=== PATIENT | female | born 1985 | race Caucasian/White ===

== ENCOUNTER 2020-05-03 20:05 | Emergency (ER) | payer MEDICAID ==
[~2020-05-03] VITALS: Ht 180.3 cm; Wt 97.7 kg
[~2020-05-03 20:05] MED LIST: LIDOcaine 1% W/epiNEPHrine 1:200,000 10ml vial ONE
--- NOTE | 2020-05-03 20:26 | NUR ---
saravanan [phone]
--- NOTE | 2020-05-03 21:19 | NUR ---
dacia is going to take patient home he can be reached at [phone]
[2020-05-03] MEDS ORDERED: TETanus/Pertussis (Acell)/Diphther VAC/PF (Tdap-Adult) 0.5ml syringe IMVAC ONE (21:50)
[2020-05-03] MEDS ORDERED: LIDOcaine 1% W/epiNEPHrine 1:200,000 10ml vial IJ ONE (22:15)
[2020-05-03] MEDS ORDERED: LIDOcaine 1% w/epiNEPHrine 1:200,000 30ml vial IJ ONE (22:20)
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
[2020-05-03 22:43] VITALS: BP 168/72
== END 2020-05-03 23:30 | disposition home or self-care (01) ==
LOC: ER 20:06
DX: S61.411A Laceration without foreign body of right hand, initial encounter (principal); W45.8XXA Other foreign body or object entering through skin, initial encounter; Y93.89 Activity, other specified; Y92.89 Other specified places as the place of occurrence of the external cause; Y99.8 Other external cause status
CPT/HCPCS: 12002; 90471; 90715; 99283

== ENCOUNTER 2020-05-11 16:27 | Emergency (ER) | payer MEDICAID ==
[~2020-05-11] VITALS: Ht 175.3 cm; Wt 70.0 kg
[2020-05-11 18:16] VITALS: BP 127/89
[2020-05-11 18:27] LABS: BASOPHILS # (AUTO) 0.1 X10'3 (0-0.2); EOSINOPHILS # (AUTO) 0.2 X10'3 (0-0.9); EOSINOPHILS % (AUTO) 3.4 % (0-6); HEMATOCRIT 40.4 % (35.0-45.0); HEMOGLOBIN 13.8 g/dl (12.0-16.0); LYMPHOCYTES # (AUTO) 2.4 X10'3 (1.1-4.8); LYMPHOCYTES % (AUTO) 33.1 % (21-51); MEAN CORPUSCULAR HGB CONC 34.1 g/dL (33.0-36.5); MEAN CORPUSCULAR VOLUME 96.7 FL (78-98); MEAN PLATELET VOLUME 8.6 FL (7.4-10.4); MONOCYTES # (AUTO) 0.8 X10'3 (0-0.9); MONOCYTES % (AUTO) 10.4 % (2-12); NEUTROPHILS # (AUTO) 3.8 X10'3 (1.8-7.7); NEUTROPHILS % (AUTO) 52.1 % (42-75); PLATELET COUNT 343 X10'3 (140-440); RED BLOOD COUNT 4.17 X10'6 (4.20-5.60); RED CELL DISTRIBUTION WIDTH 13.5 % (11.5-14.5); WHITE BLOOD COUNT 7.3 X10'3 (4.5-11.0)
[2020-05-11 18:34] LABS: URINE HCG NEGATIVE (NEG)
[2020-05-11 18:42] LABS: ALANINE AMINOTRANSFERASE 52 U/L (12-78); ALBUMIN 3.8 G/DL (3.4-5.0); ALBUMIN/GLOBULIN RATIO 1.1 (1.1-1.5); ALKALINE PHOSPHATASE 106 IU/L (46-116); ANION GAP 8 (8-16); ASPARTATE AMINO TRANSFERASE 31 U/L (10-37); BILIRUBIN,TOTAL 0.2 MG/DL (0.1-1.0); BLOOD UREA NITROGEN 9 MG/DL (7-18); BUN/CREATININE RATIO 13.2 (6.6-38.0); CALCIUM 8.5 MG/DL (8.5-10.1); CHLORIDE 106 MMOL/L (99-107); CREATININE 0.68 MG/DL (0.40-0.90); GLUCOSE 92 MG/DL (70-104); LIPASE 94 U/L (73-393); POTASSIUM 4.2 MMOL/L (3.5-5.1); SODIUM 140 MMOL/L (135-145); TOTAL CARBON DIOXIDE 25.8 MMOL/L (24-32); TOTAL PROTEIN 7.2 G/DL (6.4-8.2); eGFR > 90 ML/MIN
--- NOTE | 2020-05-11 18:49 | NUR ---
PATIENT IN BED EYES CLOSED RR EVEN UN LABORED NO OBSERVABLE S/S OF ACUTE STRESS/PAIN AT THIS TIME WILL CONTINUE TO MONITOR
[2020-05-11 18:50] LABS: CLARITY,URINE CLEAR (Clear); COLOR,URINE STRAW (Yellow); GLUCOSE, URINE NEGATIVE (Neg); KETONES,URINE NEGATIVE (Neg); LEUKOCYTE ESTERASE ,URINE NEGATIVE (Neg); NITRITES, URINE NEGATIVE (Neg); OCCULT BLOOD,URINE NEGATIVE (Neg); PH,URINE 6.5 (4.8-8.0); PROTEIN,URINE NEGATIVE (Neg); UROBILINOGEN,URINE 0.2 E.U/dL (0.2-1.0)
[2020-05-11 18:52] LABS: UA COLLECTION TYPE CLN CATCH MIDSTREAM
[2020-05-11] MEDS ORDERED: ondansetron 4mg rapidly disintigrating tab PO ONE (19:00)
[2020-05-11] MEDS ORDERED: HYDROcodone/acetaminophen 5mg/325mg tablet PO ONE (19:00)
== END 2020-05-11 20:21 | disposition home or self-care (01) ==
LOC: ER 16:28
DX: R10.9 Unspecified abdominal pain (principal); R11.2 Nausea with vomiting, unspecified; R31.9 Hematuria, unspecified; Z88.6 Allergy status to analgesic agent; Z90.49 Acquired absence of other specified parts of digestive tract
CPT/HCPCS: 36415; 74176; 80053; 81003; 81025; 83690; 85025; 99284

== ENCOUNTER 2020-07-31 20:09 | Emergency (ER) | payer MEDICAID ==
[~2020-07-31] VITALS: Ht 175.3 cm; Wt 75.0 kg
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
[2020-07-31 21:02] VITALS: BP 134/72
== END 2020-07-31 21:04 | disposition home or self-care (01) ==
LOC: ER 20:10
DX: M25.531 Pain in right wrist (principal); Z90.89 Acquired absence of other organs; Z88.6 Allergy status to analgesic agent
CPT/HCPCS: 73110; 99283

== ENCOUNTER 2021-06-14 11:44 | Emergency (ER) | payer MEDICAID ==
[2021-06-14 12:03] VITALS: BP 133/81
== END 2021-06-14 12:20 | disposition left against medical advice (07) ==
LOC: ER 11:45
DX: M79.641 Pain in right hand (principal); M79.672 Pain in left foot; Z79.899 Other long term (current) drug therapy; Z88.8 Allergy status to other drugs, medicaments and biological substances; Z90.49 Acquired absence of other specified parts of digestive tract
CPT/HCPCS: 99281

== ENCOUNTER 2021-11-24 16:28 | Emergency (ER) | payer MEDICAID ==
--- NOTE | 2021-11-24 19:40 | NUR ---
SECOND CALL, PT NOT IN LOBBY
--- NOTE | 2021-11-24 20:10 | NUR ---
THIRD CALL. PT NOT IN LOBBY
== END 2021-11-24 20:11 | disposition left against medical advice (07) ==
LOC: ER 16:30
DX: R21 Rash and other nonspecific skin eruption (principal); Z53.21 Procedure and treatment not carried out due to patient leaving prior to being seen by health care provider

== ENCOUNTER 2021-11-25 00:26 | Emergency (ER) | payer MEDICAID ==
[~2021-11-25] VITALS: Ht 177.8 cm; Wt 113.6 kg
[2021-11-25 00:45] VITALS: BP 150/105
[2021-11-25] MEDS ORDERED: triamcinolone acetonide 40mg/ml inj IM ONE (03:00)
[2021-11-25] MEDS ORDERED: dexamethasone 4mg/ml inj IM ONE (03:00)
== END 2021-11-25 03:49 | disposition home or self-care (01) ==
LOC: ER 00:26
DX: L23.7 Allergic contact dermatitis due to plants, except food (principal); Z88.6 Allergy status to analgesic agent; Z88.8 Allergy status to other drugs, medicaments and biological substances; Z90.49 Acquired absence of other specified parts of digestive tract
CPT/HCPCS: 96372; 99284; J1100; J3301

== ENCOUNTER 2022-03-07 01:55 | Emergency (ER) | payer MEDICAID ==
[~2022-03-07] VITALS: Ht 175.3 cm; Wt 81.8 kg
[2022-03-07 02:27] VITALS: BP 130/99
--- NOTE | 2022-03-07 03:38 | NUR ---
nasrin from one safe place at bedside.
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
[2022-03-07 07:03] LABS: BASOPHILS % (AUTO) 0.8 % (0-1); EOSINOPHILS # (AUTO) 0.2 X10'3 (0-0.9); EOSINOPHILS % (AUTO) 2.9 % (0-6); HEMATOCRIT 39.7 % (35.0-45.0); HEMOGLOBIN 13.4 g/dl (12.0-16.0); LYMPHOCYTES # (AUTO) 2.4 X10'3 (1.1-4.8); LYMPHOCYTES % (AUTO) 37.3 % (21-51); MEAN CORPUSCULAR HGB CONC 33.9 g/dL (33.0-36.5); MEAN CORPUSCULAR VOLUME 94.5 FL (78-98); MEAN PLATELET VOLUME 8.6 FL (7.4-10.4); MONOCYTES # (AUTO) 0.6 X10'3 (0-0.9); MONOCYTES % (AUTO) 10.1 % (2-12); NEUTROPHILS # (AUTO) 3.2 X10'3 (1.8-7.7); NEUTROPHILS % (AUTO) 48.9 % (42-75); PLATELET COUNT 305 X10'3 (140-440); RED CELL DISTRIBUTION WIDTH 13.7 % (11.5-14.5); WHITE BLOOD COUNT 6.4 X10'3 (4.5-11.0)
[2022-03-07 07:18] LABS: ALANINE AMINOTRANSFERASE 27 U/L (12-78); ALBUMIN 3.8 G/DL (3.4-5.0); ALBUMIN/GLOBULIN RATIO 1.1 (1.1-1.5); ALKALINE PHOSPHATASE 131 IU/L (46-116); ANION GAP 8 (8-16); ASPARTATE AMINO TRANSFERASE 33 U/L (10-37); BILIRUBIN,TOTAL 0.2 MG/DL (0.1-1.0); BLOOD UREA NITROGEN 6 MG/DL (7-18); BUN/CREATININE RATIO 9.1 (6.6-38.0); CALCIUM 8.3 MG/DL (8.5-10.1); CHLORIDE 99 MMOL/L (99-107); CREATININE 0.66 MG/DL (0.40-0.90); GLUCOSE 98 MG/DL (70-104); POTASSIUM 3.5 MMOL/L (3.5-5.1); SODIUM 135 MMOL/L (135-145); TOTAL PROTEIN 7.3 G/DL (6.4-8.2); eGFR > 90 ML/MIN
[2022-03-07 07:19] LABS: HCG SERUM QL NEGATIVE
[2022-03-07 09:22] LABS: HIV ANTIBODY 1&2 RAPID NON-REACTIVE (Neg)
== END 2022-03-07 08:21 | disposition home or self-care (01) ==
LOC: ER 01:56
DX: T74.21XA Adult sexual abuse, confirmed, initial encounter (principal); M54.2 Cervicalgia; R53.1 Weakness; R42 Dizziness and giddiness; R51.9 Headache, unspecified; Z88.6 Allergy status to analgesic agent; Z88.8 Allergy status to other drugs, medicaments and biological substances; Z79.899 Other long term (current) drug therapy
CPT/HCPCS: 36415; 70450; 72125; 80053; 83880; 84484; 84703; 85025; 86703; 93005; 99285

== ENCOUNTER 2022-03-29 23:07 | Emergency (ER) | payer MEDICAID ==
[~2022-03-29] VITALS: Ht 175.3 cm; Wt 90.9 kg
[2022-03-29 23:14] VITALS: BP 119/91
== END 2022-03-30 01:18 | disposition home or self-care (01) ==
LOC: ER 23:08
DX: S09.90XA Unspecified injury of head, initial encounter (principal); F07.81 Postconcussional syndrome; R51.9 Headache, unspecified; R11.0 Nausea; Z86.73 Personal history of transient ischemic attack (TIA), and cerebral infarction without residual deficits; Z90.89 Acquired absence of other organs; Z88.6 Allergy status to analgesic agent; Z88.8 Allergy status to other drugs, medicaments and biological substances; Y08.89XA Assault by other specified means, initial encounter; Y93.89 Activity, other specified; Y92.89 Other specified places as the place of occurrence of the external cause; Y99.8 Other external cause status
CPT/HCPCS: 99282

== ENCOUNTER 2022-05-02 14:00 | Emergency (ER) | payer MEDICAID ==
--- NOTE | 2022-05-02 14:58 | NUR ---
have called pt 3 times, attempted to call her again, now she is in restroom
== END 2022-05-02 17:00 | disposition left against medical advice (07) ==
LOC: ER 14:01
DX: Z00.00 Encounter for general adult medical examination without abnormal findings (principal); Z53.21 Procedure and treatment not carried out due to patient leaving prior to being seen by health care provider
CPT/HCPCS: 99283

== ENCOUNTER 2022-05-20 21:39 | Emergency (ER) | payer MEDICAID ==
[~2022-05-20] VITALS: Ht 177.8 cm; Wt 97.7 kg
[2022-05-21 04:50] LABS: CLARITY,URINE CLEAR (Clear); COLOR,URINE STRAW (Yellow); GLUCOSE, URINE NEGATIVE (Neg); KETONES,URINE NEGATIVE (Neg); LEUKOCYTE ESTERASE ,URINE NEGATIVE (Neg); NITRITES, URINE NEGATIVE (Neg); OCCULT BLOOD,URINE NEGATIVE (Neg); PROTEIN,URINE NEGATIVE (Neg); URINE HCG NEGATIVE (NEG); UROBILINOGEN,URINE 0.2 E.U/dL (0.2-1.0)
[2022-05-21 04:52] LABS: UA COLLECTION TYPE VOIDED
[2022-05-21] MEDS ORDERED: morphine 4 MG/ML inj SYRINge IM ONE (06:40)
[2022-05-21 06:55] VITALS: BP 115/54
[2022-05-21] MEDS ORDERED: fluconazole 100mg tablet PO ONE (07:05)
== END 2022-05-21 06:57 | disposition home or self-care (01) ==
LOC: ER 21:39
DX: M54.59 Other low back pain (principal); M54.2 Cervicalgia; M79.602 Pain in left arm; W19.XXXA Unspecified fall, initial encounter; Y93.89 Activity, other specified; Y92.89 Other specified places as the place of occurrence of the external cause; Y99.8 Other external cause status
CPT/HCPCS: 70450; 71045; 72125; 72128; 72131; 72170; 73130; 81003; 81025; 96372; 99285; J2270

== ENCOUNTER 2022-06-21 15:07 | Emergency (ER) | payer MEDICARE, MEDICAID ==
[~2022-06-21] VITALS: Ht 177.8 cm; Wt 91.4 kg
[2022-06-21 15:21] LABS: BASOPHILS # (AUTO) 0.1 X10'3 (0-0.2); BASOPHILS % (AUTO) 1.1 % (0-1); EOSINOPHILS # (AUTO) 0.2 X10'3 (0-0.9); EOSINOPHILS % (AUTO) 2.9 % (0-6); HEMATOCRIT 40.1 % (35.0-45.0); HEMOGLOBIN 13.7 g/dl (12.0-16.0); LYMPHOCYTES # (AUTO) 2.5 X10'3 (1.1-4.8); LYMPHOCYTES % (AUTO) 29.8 % (21-51); MEAN CORPUSCULAR HEMOGLOBIN 32.8 PG (27.0-31.0); MEAN CORPUSCULAR HGB CONC 34.2 g/dL (33.0-36.5); MEAN CORPUSCULAR VOLUME 95.9 FL (78-98); MEAN PLATELET VOLUME 8.6 FL (7.4-10.4); MONOCYTES # (AUTO) 0.7 X10'3 (0-0.9); MONOCYTES % (AUTO) 7.7 % (2-12); NEUTROPHILS # (AUTO) 4.9 X10'3 (1.8-7.7); NEUTROPHILS % (AUTO) 58.5 % (42-75); PLATELET COUNT 339 X10'3 (140-440); RED BLOOD COUNT 4.18 X10'6 (4.20-5.60); RED CELL DISTRIBUTION WIDTH 13.6 % (11.5-14.5); WHITE BLOOD COUNT 8.4 X10'3 (4.5-11.0)
[2022-06-21 15:43] LABS: ALANINE AMINOTRANSFERASE 126 U/L (12-78); ALBUMIN/GLOBULIN RATIO 1.2 (1.1-1.5); ALKALINE PHOSPHATASE 130 IU/L (46-116); ANION GAP 8 (8-16); ASPARTATE AMINO TRANSFERASE 110 U/L (10-37); BILIRUBIN,TOTAL 0.3 MG/DL (0.1-1.0); BLOOD UREA NITROGEN 5 MG/DL (7-18); BUN/CREATININE RATIO 6.3 (6.6-38.0); CALCIUM 8.6 MG/DL (8.5-10.1); CHLORIDE 103 MMOL/L (99-107); CREATININE 0.79 MG/DL (0.40-0.90); GLUCOSE 114 MG/DL (70-104); POTASSIUM 3.8 MMOL/L (3.5-5.1); SODIUM 140 MMOL/L (135-145); TOTAL CARBON DIOXIDE 29.1 MMOL/L (24-32); TOTAL PROTEIN 7.3 G/DL (6.4-8.2); eGFR 82 ML/MIN
[2022-06-21 16:45] VITALS: BP 146/90
== END 2022-06-21 20:04 | disposition left against medical advice (07) ==
LOC: ER 15:07
DX: R07.9 Chest pain, unspecified (principal); Z53.21 Procedure and treatment not carried out due to patient leaving prior to being seen by health care provider
CPT/HCPCS: 36415; 71045; 80053; 83735; 83880; 84484; 85025; 93005

== ENCOUNTER 2022-07-14 18:32 | Emergency (ER) | payer MEDICARE, MEDICAID ==
[~2022-07-14] VITALS: Ht 180.3 cm; Wt 90.2 kg
[2022-07-14 18:51] VITALS: BP 134/88
[2022-07-14 21:22] LABS: CLARITY,URINE CLEAR (Clear); COLOR,URINE STRAW (Yellow); GLUCOSE, URINE NEGATIVE (Neg); KETONES,URINE NEGATIVE (Neg); LEUKOCYTE ESTERASE ,URINE NEGATIVE (Neg); NITRITES, URINE NEGATIVE (Neg); OCCULT BLOOD,URINE SMALL (Neg); PROTEIN,URINE NEGATIVE (Neg); URINE HCG NEGATIVE (NEG); UROBILINOGEN,URINE 0.2 E.U/dL (0.2-1.0)
[2022-07-14 21:30] LABS: UA COLLECTION TYPE CLN CATCH MIDSTREAM
[2022-07-14 21:32] LABS: BASOPHILS # (AUTO) 0.1 X10'3 (0-0.2); BASOPHILS % (AUTO) 0.6 % (0-1); EOSINOPHILS # (AUTO) 0.1 X10'3 (0-0.9); EOSINOPHILS % (AUTO) 1.2 % (0-6); HEMATOCRIT 42.9 % (35.0-45.0); HEMOGLOBIN 14.4 g/dl (12.0-16.0); LYMPHOCYTES # (AUTO) 2.8 X10'3 (1.1-4.8); LYMPHOCYTES % (AUTO) 25.4 % (21-51); MEAN CORPUSCULAR HEMOGLOBIN 32.5 PG (27.0-31.0); MEAN CORPUSCULAR HGB CONC 33.6 g/dL (33.0-36.5); MEAN CORPUSCULAR VOLUME 96.6 FL (78-98); MEAN PLATELET VOLUME 8.8 FL (7.4-10.4); MONOCYTES % (AUTO) 8.9 % (2-12); NEUTROPHILS # (AUTO) 7.1 X10'3 (1.8-7.7); NEUTROPHILS % (AUTO) 63.9 % (42-75); PLATELET COUNT 361 X10'3 (140-440); RED BLOOD COUNT 4.44 X10'6 (4.20-5.60); RED CELL DISTRIBUTION WIDTH 14.1 % (11.5-14.5); WHITE BLOOD COUNT 11.2 X10'3 (4.5-11.0)
[2022-07-14 21:33] LABS: SQUAMOUS EPITHELIAL CELL,UR FEW /LPF (FEW)
[2022-07-14 21:34] LABS: BACTERIA,URINE NONE SEEN /HPF (Neg); RBC,URINE 0-2 /HPF (0-2); WBC,URINE NONE SEEN /HPF (0-4)
[2022-07-14 21:44] LABS: ALANINE AMINOTRANSFERASE 91 U/L (12-78); ALBUMIN 4.4 G/DL (3.4-5.0); ALBUMIN/GLOBULIN RATIO 1.2 (1.1-1.5); ALKALINE PHOSPHATASE 149 IU/L (46-116); ANION GAP 13 (8-16); ASPARTATE AMINO TRANSFERASE 106 U/L (10-37); BILIRUBIN,TOTAL 0.4 MG/DL (0.1-1.0); BLOOD UREA NITROGEN 6 MG/DL (7-18); BUN/CREATININE RATIO 7.5 (6.6-38.0); CALCIUM 9.1 MG/DL (8.5-10.1); CHLORIDE 101 MMOL/L (99-107); GLUCOSE 115 MG/DL (70-104); POTASSIUM 3.1 MMOL/L (3.5-5.1); SODIUM 136 MMOL/L (135-145); TOTAL CARBON DIOXIDE 21.7 MMOL/L (24-32); TOTAL PROTEIN 8.1 G/DL (6.4-8.2); eGFR 81 ML/MIN
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
[2022-07-14] MEDS ORDERED: METR-159 PO (22:11)
[2022-07-14] MEDS ORDERED: DOXY-1 PO (22:11)
[2022-07-14] MEDS ORDERED: DOXYCYCLINE 100MG CAPSULE PO STA (22:12)
[2022-07-14] MEDS ORDERED: metroNIDAZOLE 500mg tablet PO ONE (22:15)
[2022-07-14] MEDS: POTASSIUM BICARB 20meq eff tab 20 MEQ TABLET.EFF PO SCH (22:25)
== END 2022-07-14 22:30 | disposition home or self-care (01) ==
LOC: ER 18:33
DX: N73.9 Female pelvic inflammatory disease, unspecified (principal); E87.6 Hypokalemia; F17.200 Nicotine dependence, unspecified, uncomplicated; Z90.49 Acquired absence of other specified parts of digestive tract; Z88.6 Allergy status to analgesic agent; Z88.5 Allergy status to narcotic agent; Z88.8 Allergy status to other drugs, medicaments and biological substances
CPT/HCPCS: 36415; 80053; 81001; 81025; 85025; 99284

== ENCOUNTER 2022-07-24 15:12 | Emergency (ER) | payer MEDICARE, MEDICAID ==
[~2022-07-24] VITALS: Ht 182.9 cm; Wt 113.6 kg
[~2022-07-24 15:12] MED LIST changes: +DOXY-1 PO; -LIDOcaine 1% W/epiNEPHrine 1:200,000 10ml vial ONE; +METR-159 PO
[2022-07-24 15:15] VITALS: BP 121/88
[2022-07-24 15:54] LABS: BASOPHILS % (AUTO) 0.4 % (0-1); EOSINOPHILS # (AUTO) 0.1 X10'3 (0-0.9); EOSINOPHILS % (AUTO) 1.6 % (0-6); HEMATOCRIT 42.2 % (35.0-45.0); HEMOGLOBIN 14.1 g/dl (12.0-16.0); LYMPHOCYTES # (AUTO) 2.1 X10'3 (1.1-4.8); LYMPHOCYTES % (AUTO) 31.3 % (21-51); MEAN CORPUSCULAR HEMOGLOBIN 32.7 PG (27.0-31.0); MEAN CORPUSCULAR HGB CONC 33.5 g/dL (33.0-36.5); MEAN CORPUSCULAR VOLUME 97.6 FL (78-98); MEAN PLATELET VOLUME 8.5 FL (7.4-10.4); MONOCYTES # (AUTO) 0.8 X10'3 (0-0.9); MONOCYTES % (AUTO) 11.9 % (2-12); NEUTROPHILS # (AUTO) 3.7 X10'3 (1.8-7.7); NEUTROPHILS % (AUTO) 54.8 % (42-75); PLATELET COUNT 269 X10'3 (140-440); RED BLOOD COUNT 4.33 X10'6 (4.20-5.60); WHITE BLOOD COUNT 6.7 X10'3 (4.5-11.0)
[2022-07-24 15:59] LABS: CLARITY,URINE CLEAR (Clear); COLOR,URINE STRAW (Yellow); GLUCOSE, URINE NEGATIVE (Neg); KETONES,URINE NEGATIVE (Neg); LEUKOCYTE ESTERASE ,URINE NEGATIVE (Neg); NITRITES, URINE NEGATIVE (Neg); OCCULT BLOOD,URINE NEGATIVE (Neg); PROTEIN,URINE NEGATIVE (Neg); UROBILINOGEN,URINE 0.2 E.U/dL (0.2-1.0)
[2022-07-24 16:00] LABS: UA COLLECTION TYPE VOIDED
[2022-07-24 16:09] LABS: ALANINE AMINOTRANSFERASE 72 U/L (12-78); ALBUMIN 3.6 G/DL (3.4-5.0); ALBUMIN/GLOBULIN RATIO 1.1 (1.1-1.5); ALKALINE PHOSPHATASE 134 IU/L (46-116); ANION GAP 12 (8-16); ASPARTATE AMINO TRANSFERASE 59 U/L (10-37); BILIRUBIN,TOTAL 0.3 MG/DL (0.1-1.0); BLOOD UREA NITROGEN 8 MG/DL (7-18); BUN/CREATININE RATIO 12.3 (6.6-38.0); CALCIUM 8.5 MG/DL (8.5-10.1); CHLORIDE 102 MMOL/L (99-107); CREATININE 0.65 MG/DL (0.40-0.90); GLUCOSE 101 MG/DL (70-104); POTASSIUM 3.3 MMOL/L (3.5-5.1); SODIUM 139 MMOL/L (135-145); TOTAL CARBON DIOXIDE 25.5 MMOL/L (24-32); TOTAL PROTEIN 6.8 G/DL (6.4-8.2); eGFR > 90 ML/MIN
[2022-07-24 16:13] LABS: URINE AMPHETAMINE SCREEN NEGATIVE (Neg); URINE BARBITUATE SCREEN NEGATIVE (Neg); URINE BENZODIAZEPINES SCREEN POSITIVE (Neg); URINE CANNABINOID SCREEN POSITIVE (Neg); URINE COCAINE SCREEN NEGATIVE (Neg); URINE METHADONE SCREEN NEGATIVE (Neg); URINE OPIATE SCREEN NEGATIVE (Neg); URINE PHENCYCLIDINE SCREEN NEGATIVE (Neg)
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
== END 2022-07-24 17:58 | disposition left against medical advice (07) ==
LOC: ER 15:13
DX: R41.82 Altered mental status, unspecified (principal); Z88.5 Allergy status to narcotic agent; Z88.6 Allergy status to analgesic agent; Z90.49 Acquired absence of other specified parts of digestive tract; Z79.899 Other long term (current) drug therapy
CPT/HCPCS: 36415; 80053; 80305; 81003; 84484; 85025; 93005; 99284

== ENCOUNTER 2022-07-28 17:29 | Emergency (ER) | payer MEDICARE, MEDICAID ==
[~2022-07-28] VITALS: Ht 172.7 cm; Wt 87.0 kg
[2022-07-28 17:32] VITALS: BP 134/106
--- NOTE | 2022-07-28 18:07 | NUR ---
Patient seen by provider and sent back to lobby. Awaiting ED room.
== END 2022-07-28 18:53 | disposition home or self-care (01) ==
LOC: ER 17:30
DX: R45.87 Impulsiveness (principal); F99 Mental disorder, not otherwise specified; S09.90XA Unspecified injury of head, initial encounter; Z88.5 Allergy status to narcotic agent; Z88.6 Allergy status to analgesic agent; Z98.890 Other specified postprocedural states; W19.XXXA Unspecified fall, initial encounter; Y93.89 Activity, other specified; Y92.89 Other specified places as the place of occurrence of the external cause; Y99.8 Other external cause status
CPT/HCPCS: 70450; 99284

== ENCOUNTER 2022-08-23 12:46 | Emergency (ER) | payer BC, MEDICAID ==
[~2022-08-23] VITALS: Ht 175.3 cm; Wt 100.0 kg
[2022-08-23 13:20] VITALS: BP 119/82
--- NOTE | 2022-08-23 15:41 | NUR ---
Would not come to t2 for vital assesment
== END 2022-08-23 17:45 | disposition left against medical advice (07) ==
LOC: ER 12:46
DX: Z04.3 Encounter for examination and observation following other accident (principal); Z53.21 Procedure and treatment not carried out due to patient leaving prior to being seen by health care provider; W19.XXXA Unspecified fall, initial encounter; Y93.89 Activity, other specified; Y92.89 Other specified places as the place of occurrence of the external cause; Y99.8 Other external cause status
CPT/HCPCS: 99281

== ENCOUNTER 2022-10-11 14:14 | Emergency (ER) | payer BC, MEDICAID ==
[~2022-10-11] VITALS: Ht 179.1 cm; Wt 86.8 kg
[2022-10-11 14:26] VITALS: BP 121/83
[2022-10-11] MEDS ORDERED: TRAM50TA2 PO (16:22)
[2022-10-11] MEDS ORDERED: ALBU8HFA PO (16:22)
[2022-10-11] MEDS ORDERED: diazepam 5mg tablet PO ONE (16:30)
[2022-10-11] MEDS ORDERED: traMADol 50MG tablet PO ONE (16:30)
== END 2022-10-11 17:10 | disposition home or self-care (01) ==
LOC: ER 14:15
DX: S80.12XA Contusion of left lower leg, initial encounter (principal); Z88.6 Allergy status to analgesic agent; Z98.890 Other specified postprocedural states; W19.XXXA Unspecified fall, initial encounter; Y93.89 Activity, other specified; Y92.89 Other specified places as the place of occurrence of the external cause; Y99.8 Other external cause status
CPT/HCPCS: 73564; 99283

== ENCOUNTER 2023-02-24 22:48 | Emergency (ER) | payer BC, MEDICAID | END 2023-02-24 23:20 | disposition left against medical advice (07) | LOC: ER 22:49 | DX: R56.9 Unspecified convulsions (principal); Z53.21 Procedure and treatment not carried out due to patient leaving prior to being seen by health care provider ==

== ENCOUNTER 2023-03-02 16:42 | Emergency (ER) | payer BC, MEDICAID ==
[~2023-03-02] VITALS: Ht 179.1 cm; Wt 90.9 kg
[2023-03-02 16:57] VITALS: BP 141/96; PULSE 102; RESP 19; TEMP 97.9; O2SAT 99
[2023-03-02 17:06] LABS: BASOPHILS # (AUTO) 0.1 X10'3 (0-0.2); BASOPHILS % (AUTO) 0.5 % (0-1); EOSINOPHILS # (AUTO) 0.2 X10'3 (0-0.9); EOSINOPHILS % (AUTO) 1.9 % (0-6); HEMATOCRIT 43.6 % (35.0-45.0); HEMOGLOBIN 14.6 g/dl (12.0-16.0); LYMPHOCYTES # (AUTO) 3.1 X10'3 (1.1-4.8); LYMPHOCYTES % (AUTO) 28.9 % (21-51); MEAN CORPUSCULAR HEMOGLOBIN 32.9 PG (27.0-31.0); MEAN CORPUSCULAR HGB CONC 33.5 g/dL (33.0-36.5); MEAN CORPUSCULAR VOLUME 98.3 FL (78-98); MONOCYTES % (AUTO) 9.3 % (2-12); NEUTROPHILS # (AUTO) 6.4 X10'3 (1.8-7.7); NEUTROPHILS % (AUTO) 59.4 % (42-75); PLATELET COUNT 354 X10'3 (140-440); RED BLOOD COUNT 4.43 X10'6 (4.20-5.60); RED CELL DISTRIBUTION WIDTH 13.9 % (11.5-14.5); WHITE BLOOD COUNT 10.8 X10'3 (4.5-11.0)
[2023-03-02 17:14] LABS: ALANINE AMINOTRANSFERASE 55 U/L (12-78); ALBUMIN/GLOBULIN RATIO 1.1 (1.1-1.5); ALKALINE PHOSPHATASE 119 IU/L (46-116); ANION GAP 8 (8-16); ASPARTATE AMINO TRANSFERASE 24 U/L (10-37); BILIRUBIN,TOTAL 0.2 MG/DL (0.1-1.0); BLOOD UREA NITROGEN 6 MG/DL (7-18); BUN/CREATININE RATIO 9.1 (10.0-20.0); CALCIUM 9.1 MG/DL (8.5-10.1); CHLORIDE 104 MMOL/L (99-107); CREATININE 0.66 MG/DL (0.40-0.90); GLUCOSE 110 MG/DL (70-104); SODIUM 137 MMOL/L (135-145); TOTAL CARBON DIOXIDE 24.6 MMOL/L (24-32); TOTAL PROTEIN 7.5 G/DL (6.4-8.2); eCRCL 128 ML/MIN; eGFR > 90 ML/MIN
[2023-03-02 17:22] LABS: PRO BRAIN NATRIURETIC PEPTIDE 49 PG/ML (0-125)
[2023-03-02 17:58] LABS: URINE HCG NEGATIVE (NEG)
[2023-03-02 18:33] LABS: BILIRUBIN,URINE NEGATIVE (Neg); CLARITY,URINE CLEAR (Clear); COLOR,URINE STRAW (Yellow); GLUCOSE, URINE NEGATIVE (Neg); KETONES,URINE NEGATIVE (Neg); LEUKOCYTE ESTERASE ,URINE NEGATIVE (Neg); NITRITES, URINE NEGATIVE (Neg); OCCULT BLOOD,URINE NEGATIVE (Neg); PH,URINE 6.5 (4.8-8.0); PROTEIN,URINE NEGATIVE (Neg); UROBILINOGEN,URINE 0.2 E.U/dL (0.2-1.0)
[2023-03-02 18:42] LABS: UA COLLECTION TYPE CLN CATCH MIDSTREAM
== END 2023-03-02 23:53 | disposition left against medical advice (07) ==
LOC: ER 16:43
DX: R56.9 Unspecified convulsions (principal); I48.91 Unspecified atrial fibrillation; Z53.21 Procedure and treatment not carried out due to patient leaving prior to being seen by health care provider
CPT/HCPCS: 36415; 71045; 80053; 81003; 81025; 83880; 84484; 85025; 93005; 99281

== ENCOUNTER 2023-03-30 13:21 | Emergency (ER) | payer BC, MEDICAID ==
[~2023-03-30] VITALS: Ht 175.3 cm; Wt 79.4 kg
[2023-03-30 13:31] VITALS: BP 111/91; PULSE 90; RESP 16; TEMP 98.6; O2SAT 98
[2023-03-30 15:49] LABS: BILIRUBIN,URINE NEGATIVE (Neg); CLARITY,URINE CLEAR (Clear); COLOR,URINE YELLOW (Yellow); GLUCOSE, URINE NEGATIVE (Neg); KETONES,URINE NEGATIVE (Neg); LEUKOCYTE ESTERASE ,URINE NEGATIVE (Neg); NITRITES, URINE NEGATIVE (Neg); OCCULT BLOOD,URINE NEGATIVE (Neg); PROTEIN,URINE NEGATIVE (Neg); UROBILINOGEN,URINE 0.2 E.U/dL (0.2-1.0)
[2023-03-30 15:51] LABS: UA COLLECTION TYPE CLN CATCH MIDSTREAM
[2023-03-30] MEDS ORDERED: CEPH250T PO (16:17)
== END 2023-03-30 16:29 | disposition home or self-care (01) ==
LOC: ER 13:21
DX: R30.0 Dysuria (principal); F17.200 Nicotine dependence, unspecified, uncomplicated; Z88.6 Allergy status to analgesic agent; Z88.5 Allergy status to narcotic agent; Z88.8 Allergy status to other drugs, medicaments and biological substances; Z79.2 Long term (current) use of antibiotics; Z98.890 Other specified postprocedural states
CPT/HCPCS: 81003; 99283

== ENCOUNTER 2023-04-05 08:58 | Emergency (ER) | payer BC, MEDICAID ==
[~2023-04-05] VITALS: Ht 177.8 cm; Wt 90.0 kg
[~2023-04-05 08:58] MED LIST changes: +CEPH250T PO; -DOXY-1 PO; -METR-159 PO
[2023-04-05 10:36] VITALS: BP 125/93; PULSE 74; TEMP 97; O2SAT 98
[2023-04-05 10:45] VITALS: RESP 18
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
--- NOTE | 2023-04-05 12:05 | NUR ---
INSTRUCTOR INDUSTRIAL DESIGN ASSESSMENT REVIEWED, BY CRISTÓBAL RN; APPROVED
== END 2023-04-05 11:15 | disposition left against medical advice (07) ==
LOC: ER 08:59
DX: H92.09 Otalgia, unspecified ear (principal); Z53.21 Procedure and treatment not carried out due to patient leaving prior to being seen by health care provider
CPT/HCPCS: 99281

== ENCOUNTER 2023-05-17 10:24 | Emergency (ER) | payer BC, MEDICAID ==
[~2023-05-17] VITALS: Ht 177.8 cm; Wt 87.8 kg
[2023-05-17 11:34] LABS: BASOPHILS # (AUTO) 0.1 X10'3 (0-0.2); BASOPHILS % (AUTO) 0.6 % (0-1); EOSINOPHILS # (AUTO) 0.2 X10'3 (0-0.9); EOSINOPHILS % (AUTO) 2.4 % (0-6); HEMATOCRIT 43.4 % (35.0-45.0); HEMOGLOBIN 14.4 g/dl (12.0-16.0); LYMPHOCYTES # (AUTO) 2.5 X10'3 (1.1-4.8); MEAN CORPUSCULAR HGB CONC 33.2 g/dL (33.0-36.5); MEAN CORPUSCULAR VOLUME 99.3 FL (78-98); MEAN PLATELET VOLUME 9.4 FL (7.4-10.4); MONOCYTES # (AUTO) 0.8 X10'3 (0-0.9); MONOCYTES % (AUTO) 9.8 % (2-12); NEUTROPHILS # (AUTO) 4.8 X10'3 (1.8-7.7); NEUTROPHILS % (AUTO) 57.2 % (42-75); PLATELET COUNT 317 X10'3 (140-440); RED BLOOD COUNT 4.37 X10'6 (4.20-5.60); RED CELL DISTRIBUTION WIDTH 13.7 % (11.5-14.5); WHITE BLOOD COUNT 8.3 X10'3 (4.5-11.0)
[2023-05-17 11:35] LABS: BILIRUBIN,URINE NEGATIVE (Neg); CLARITY,URINE CLEAR (Clear); COLOR,URINE STRAW (Yellow); GLUCOSE, URINE NEGATIVE (Neg); KETONES,URINE NEGATIVE (Neg); LEUKOCYTE ESTERASE ,URINE NEGATIVE (Neg); NITRITES, URINE NEGATIVE (Neg); OCCULT BLOOD,URINE NEGATIVE (Neg); PROTEIN,URINE NEGATIVE (Neg); UROBILINOGEN,URINE 0.2 E.U/dL (0.2-1.0)
[2023-05-17 11:50] LABS: ALANINE AMINOTRANSFERASE 42 U/L (12-78); ALBUMIN 3.8 G/DL (3.4-5.0); ALBUMIN/GLOBULIN RATIO 1.1 (1.1-1.5); ALKALINE PHOSPHATASE 137 IU/L (46-116); ANION GAP 9 (8-16); ASPARTATE AMINO TRANSFERASE 25 U/L (10-37); BILIRUBIN,TOTAL 0.3 MG/DL (0.1-1.0); BLOOD UREA NITROGEN 7 MG/DL (7-18); BUN/CREATININE RATIO 9.6 (10.0-20.0); CALCIUM 8.7 MG/DL (8.5-10.1); CHLORIDE 101 MMOL/L (99-107); CREATININE 0.73 MG/DL (0.40-0.90); GLUCOSE 149 MG/DL (70-104); SODIUM 135 MMOL/L (135-145); TOTAL CARBON DIOXIDE 25.5 MMOL/L (24-32); TOTAL PROTEIN 7.3 G/DL (6.4-8.2); eCRCL 114 ML/MIN; eGFR 90 ML/MIN
[2023-05-17 11:59] LABS: UA COLLECTION TYPE CLN CATCH MIDSTREAM
[2023-05-17 12:05] LABS: URINE HCG NEGATIVE (NEG)
[2023-05-17] MEDS ORDERED: AZIT250T83 PO (12:27)
[2023-05-17] MEDS ORDERED: ALBU6.7H14 INH (12:28)
[2023-05-17 13:01] VITALS: BP 132/98; PULSE 75; RESP 16; TEMP 98.6; O2SAT 99
== END 2023-05-17 13:04 | disposition home or self-care (01) ==
LOC: ER 10:24
DX: J06.9 Acute upper respiratory infection, unspecified (principal); R05.9 Cough, unspecified; Z88.6 Allergy status to analgesic agent; Z79.899 Other long term (current) drug therapy; Z79.2 Long term (current) use of antibiotics; Z98.890 Other specified postprocedural states
CPT/HCPCS: 36415; 71045; 80053; 81003; 81025; 85025; 99284

== ENCOUNTER 2023-06-14 09:45 | Emergency (ER) | payer BC, MEDICAID ==
[~2023-06-14] VITALS: Ht 177.8 cm; Wt 87.7 kg
[~2023-06-14 09:45] MED LIST changes: +ALBU6.7H14 INH; -CEPH250T PO
[2023-06-14 12:03] VITALS: BP 123/101; PULSE 82; RESP 20; TEMP 98.6; O2SAT 98
== END 2023-06-14 14:31 | disposition left against medical advice (07) ==
LOC: ER 09:46
DX: R06.02 Shortness of breath (principal); R06.2 Wheezing; R07.89 Other chest pain
CPT/HCPCS: 71045; 99283; 99285

== ENCOUNTER 2023-06-30 15:30 | Emergency (ER) | payer BC, MEDICAID ==
[~2023-06-30] VITALS: Ht 181.6 cm; Wt 92.2 kg
[2023-06-30 15:34] VITALS: BP 143/94; PULSE 96; RESP 16; TEMP 98.2; O2SAT 99
[2023-06-30 15:57] LABS: BILIRUBIN,URINE NEGATIVE (Neg); CLARITY,URINE SLIGHTLY CLOUDY (Clear); COLOR,URINE STRAW (Yellow); GLUCOSE, URINE NEGATIVE (Neg); KETONES,URINE NEGATIVE (Neg); LEUKOCYTE ESTERASE ,URINE NEGATIVE (Neg); NITRITES, URINE NEGATIVE (Neg); OCCULT BLOOD,URINE NEGATIVE (Neg); PH,URINE 5.5 (4.8-8.0); PROTEIN,URINE NEGATIVE (Neg); UROBILINOGEN,URINE 0.2 E.U/dL (0.2-1.0)
[2023-06-30 15:58] LABS: URINE HCG NEGATIVE (NEG)
[2023-06-30 15:59] LABS: UA COLLECTION TYPE CLN CATCH MIDSTREAM
[2023-06-30 16:06] LABS: BACTERIA,URINE FEW /HPF (Neg); RBC,URINE 0-2 /HPF (0-2); SQUAMOUS EPITHELIAL CELL,UR MODERATE /LPF (FEW); WBC,URINE 0-4 /HPF (0-4)
[2023-06-30 16:30] LABS: BASOPHILS # (AUTO) 0.1 X10'3 (0-0.2); BASOPHILS % (AUTO) 0.8 % (0-1); EOSINOPHILS # (AUTO) 0.2 X10'3 (0-0.9); EOSINOPHILS % (AUTO) 2.1 % (0-6); HEMATOCRIT 41.8 % (35.0-45.0); HEMOGLOBIN 14.1 g/dl (12.0-16.0); LYMPHOCYTES # (AUTO) 2.6 X10'3 (1.1-4.8); LYMPHOCYTES % (AUTO) 31.9 % (21-51); MEAN CORPUSCULAR HEMOGLOBIN 33.3 PG (27.0-31.0); MEAN CORPUSCULAR HGB CONC 33.8 g/dL (33.0-36.5); MEAN CORPUSCULAR VOLUME 98.5 FL (78-98); MEAN PLATELET VOLUME 9.1 FL (7.4-10.4); MONOCYTES # (AUTO) 0.5 X10'3 (0-0.9); MONOCYTES % (AUTO) 6.5 % (2-12); NEUTROPHILS # (AUTO) 4.8 X10'3 (1.8-7.7); NEUTROPHILS % (AUTO) 58.7 % (42-75); PLATELET COUNT 349 X10'3 (140-440); RED BLOOD COUNT 4.24 X10'6 (4.20-5.60); RED CELL DISTRIBUTION WIDTH 13.4 % (11.5-14.5); WHITE BLOOD COUNT 8.2 X10'3 (4.5-11.0)
[2023-06-30 16:46] LABS: ALANINE AMINOTRANSFERASE 43 U/L (12-78); ALBUMIN 3.9 G/DL (3.4-5.0); ALBUMIN/GLOBULIN RATIO 1.1 (1.1-1.5); ALKALINE PHOSPHATASE 152 IU/L (46-116); ANION GAP 11 (8-16); ASPARTATE AMINO TRANSFERASE 42 U/L (10-37); BILIRUBIN,TOTAL 0.4 MG/DL (0.1-1.0); BLOOD UREA NITROGEN 4 MG/DL (7-18); BUN/CREATININE RATIO 4.5 (10.0-20.0); CALCIUM 9.3 MG/DL (8.5-10.1); CHLORIDE 102 MMOL/L (99-107); CREATININE 0.88 MG/DL (0.40-0.90); GLUCOSE 138 MG/DL (70-104); LIPASE 59 U/L (16-77); POTASSIUM 3.7 MMOL/L (3.5-5.1); SODIUM 140 MMOL/L (135-145); TOTAL CARBON DIOXIDE 26.7 MMOL/L (24-32); TOTAL PROTEIN 7.6 G/DL (6.4-8.2); eCRCL 99 ML/MIN; eGFR 72 ML/MIN
== END 2023-06-30 19:01 | disposition left against medical advice (07) ==
LOC: ER 15:31
DX: R10.84 Generalized abdominal pain (principal); R11.2 Nausea with vomiting, unspecified; Z53.21 Procedure and treatment not carried out due to patient leaving prior to being seen by health care provider
CPT/HCPCS: 36415; 80053; 81001; 81025; 83690; 85025; 99281

== ENCOUNTER 2023-10-05 14:09 | Emergency (ER) | payer BC, MEDICAID | END 2023-10-05 15:06 | disposition left against medical advice (07) | LOC: ER 14:10 | DX: M00.9 Pyogenic arthritis, unspecified (principal); Z53.21 Procedure and treatment not carried out due to patient leaving prior to being seen by health care provider | CPT/HCPCS: 99281 ==

== ENCOUNTER 2023-12-04 15:31 | Emergency (ER) | payer BC, MEDICAID ==
[~2023-12-04] VITALS: Ht 177.8 cm; Wt 90.9 kg
[2023-12-04 15:36] VITALS: BP 139/86; PULSE 85; TEMP 99; O2SAT 96
[2023-12-04 15:43] VITALS: RESP 16
[2023-12-04 17:22] LABS: URINE HCG NEGATIVE (NEG)
[2023-12-04 17:27] LABS: BILIRUBIN,URINE NEGATIVE (Neg); CLARITY,URINE CLEAR (Clear); COLOR,URINE STRAW (Yellow); GLUCOSE, URINE NEGATIVE (Neg); KETONES,URINE NEGATIVE (Neg); LEUKOCYTE ESTERASE ,URINE NEGATIVE (Neg); NITRITES, URINE NEGATIVE (Neg); OCCULT BLOOD,URINE NEGATIVE (Neg); PH,URINE 5.5 (4.8-8.0); PROTEIN,URINE NEGATIVE (Neg); UROBILINOGEN,URINE 0.2 E.U/dL (0.2-1.0)
[2023-12-04 17:34] LABS: UA COLLECTION TYPE CLN CATCH MIDSTREAM
[2023-12-05] MEDS ORDERED: ALBU8HFA INH (01:06)
[2023-12-05] MEDS ORDERED: CEPH-585 PO (01:07)
== END 2023-12-04 17:01 | disposition left against medical advice (07) ==
LOC: ER 15:32
DX: N81.10 Cystocele, unspecified (principal); R06.02 Shortness of breath; R05.9 Cough, unspecified; Z53.21 Procedure and treatment not carried out due to patient leaving prior to being seen by health care provider
CPT/HCPCS: 71045; 81003; 81025

== ENCOUNTER 2024-11-02 13:32 | Emergency (ER) | payer BC, MEDICAID ==
[2024-11-04] MEDS ORDERED: METR-159 PO (22:26)
== END 2024-11-02 15:03 | disposition left against medical advice (07) ==
LOC: ER 13:33
DX: Z04.3 Encounter for examination and observation following other accident (principal); Z88.8 Allergy status to other drugs, medicaments and biological substances; Z53.21 Procedure and treatment not carried out due to patient leaving prior to being seen by health care provider; W19.XXXA Unspecified fall, initial encounter; Y93.89 Activity, other specified; Y92.89 Other specified places as the place of occurrence of the external cause; Y99.8 Other external cause status

== ENCOUNTER 2025-04-03 15:17 | Emergency (ER) | payer MEDICARE, MEDICAID ==
[~2025-04-03] VITALS: Ht 175.3 cm; Wt 97.2 kg
--- NOTE | 2025-04-03 15:52 | Physician Documentation ---
History of Present Illness ~ General Stated Complaint: PREG COMPLICATIONS Time Seen by MD: 19:13 Primary Medical Doctor: NONE Source: patient Mode of Arrival: Ambulatory Exam Limitations: no limitations History of Present Illness Initial Comments 39-year-old female with multiple medical complaints which she states she just found out shoes recently she states that she does not know exactly when her last menstrual cycle was but it was proximally 6-8 weeks ago. Patient is experiencing incontinence and abdominal cramping. Patient states that she spent the last 5 days at [facility] due to nausea vomiting diarrhea due to . Patient endorses alcohol abuse and needing a refill of gabapentin as this medication was the safest for being and and alcohol withdrawal. Patient also endorses other chronic conditions and medical history. Patient denies any vaginal bleeding. Patient states that she does have specialty appointments [facility] Medication Reconciliation Allergies: Coded Allergies: acetaminophen (Verified Allergy, Severe, 04/03/25) ibuprofen (Verified Allergy, Severe, 04/03/25) naproxen (Verified Allergy, Severe, 04/03/25) ondansetron (Verified Allergy, Unknown, 04/03/25) Scheduled Albuterol Sulfate (Proventil Hfa), 2 PUFFS INH Q4H Cefpodoxime Proxetil (Vantin), 1 TAB PO Q12H Gabapentin (Neurontin), 1 CAP PO PRN Past Medical History Past Medical History: CVA/TIA/Stroke, UTI, *PSYCH*, Anxiety, Depression, Panic Disorder, Schizophrenia Past Surgical History: appendectomy Alcohol Use: None Drug Use: none Lives In: Home Review of Systems All Other Systems at this time: Reviewed and Negative Female Genitalia: Reports: see HPI Physical Exam Physical Exam Physical Exam General: Alert, no apparent distress. HEENT: moist mucous membranes. Neck: Full range of motion. Respiratory: No respiratory distress speaking in full sentences Chest: No accessory muscle use. Cardiovascular: Appears well perfused Neurologic: Oriented x4. Psychiatric: Normal mood and affect. Thought process was flighty Skin: Normal color, warm and dry. No edema, no ecchymosis. Progress Results/Orders Results/Orders Completed Orders - OHLFS,ANNA Rivera MD Gabapentin Capsule (Neurontin Capsule) (04/03/25 22:35) Gabapentin Capsule (Neurontin Capsule) (04/03/25 22:35) Hcg Serum Qt (04/03/25 22:39) Medications Received in ER Medications (Trade) Dose Ordered Sig/Monica Route PRN Reason Start Time Stop Time Status Last Admin Dose Admin (Neurontin capsule) 600 mg ONCE ONCE PO 04/03/25 22:35 04/03/25 22:38 DC 04/03/25 22:49 600 MG Vital Signs 04/03/25 04/03/25 04/03/25 04/03/25 15:42 19:12 19:12 20:03 Temp 98.2 97.6 Pulse 91 87 88 Resp 16 20 20 16 B/P (MAP) 130/87 141/92 (108) 124/84 (97) Pulse Ox 97 100 97 O2 Flow Rate 0 0 0 04/03/25 04/03/25 04/03/25 04/04/25 21:00 22:00 23:00 00:16 Temp 97.5 97.3 97.1 97.7 Pulse 85 81 81 75 Resp 20 20 20 20 B/P (MAP) 161/98 (119) 116/79 (91) 122/88 (99) 117/80 (92) Pulse Ox 100 97 99 98 O2 Flow Rate 0 0 0 0 Laboratory Tests Test 04/03/25 16:11 04/03/25 22:00 White Blood Count 10.1 Red Blood Count 4.25 Hemoglobin 13.8 Hematocrit 39.9 Mean Corpuscular Volume 93.9 Mean Corpuscular Hemoglobin 32.4 H Mean Corpuscular Hemoglobin Concent 34.5 Red Cell Distribution Width 13.2 Platelet Count 393 Mean Platelet Volume 8.9 Neutrophils (%) (Auto) 65.4 Lymphocytes (%) (Auto) 23.7 Monocytes (%) (Auto) 7.4 Eosinophils (%) (Auto) 2.7 Basophils (%) (Auto) 0.8 Neutrophils # (Auto) 6.6 Lymphocytes # (Auto) 2.4 Monocytes # (Auto) 0.7 Eosinophils # (Auto) 0.3 Basophils # (Auto) 0.1 CBC Comment Sodium Level 139 Potassium Level 3.5 Chloride Level 105 Carbon Dioxide Level 26.6 Anion Gap 7 L Blood Urea Nitrogen 4 L Creatinine 0.75 Estimated GFR/1.73 m2 86 BUN/Creatinine Ratio 5.3 L Glucose Level 101 Calcium Level 9.0 Albumin 3.8 HCG Beta Subunit 2147 Chemistry Comments Ethyl Alcohol Level 21 H Urine Specimen Description Cln catch midstream Urine Color Straw Urine Clarity Slightly cloudy Urine pH 6.0 Urine Specific [place] <=1.005 Urine Protein Negative Urine Glucose (UA) Negative Urine Ketones Negative Urine Occult Blood Negative Urine Nitrite Negative Urine Bilirubin Negative Urine Urobilinogen 0.2 Urine Leukocyte Esterase Negative Urine RBC None seen Urine WBC None seen Urine Squamous Epithelial Cells None seen Urine Bacteria Few Urine Culture Indicated Not ind Volume Urine Centrifuged 10 ml Urine Comment Urine Opiates Screen Negative Urine Methadone Screen Negative Urine Fentanyl Screen Negative Urine Barbiturates Screen Negative Urine Phencyclidine Screen Negative Urine Amphetamines Screen Negative Urine Benzodiazepines Screen Positive Urine Cocaine Screen Negative Urine Cannabinoids Screen Positive Drug Screen Comment Medical Decision Making Additional information obtaine: old records Findings The patient states she is two weeks she has requesting a refill on her gabapentin that she has been taking for alcohol withdrawal syndrome, the patient also requesting antibiotics she does have bacteriuria and she has a history of UTIs in the past the patient will be prescribed antibiotics she has also been given a taper of gabapentin for her alcohol withdrawal syndrome her beta hCG was checked and according to her her last beta hCG quantitative was 800 she is 2100 today the last one was about two days ago the patient is otherwise in no distress. The prior hospitalizations were reviewed patient's pulse oximetry was interpreted as normal and adequate the patient will be discharged. She has been advised to return for any worsening of her symptoms. And follow up closely with the primary care providers. The patient's pulse oximetry was interpreted as normal and adequate. Differential Diagnosis Urinary tract infection, Departure Impression: Primary Impression: Alcohol abuse with withdrawal Additional Impression: First trimester Discharge Instructions: Alcohol Use During Referrals: NO PRIMARY CARE PROVIDER (PCP) Prescriptions Cefpodoxime Proxetil (Vantin) 200 Mg Tablet 1 TAB PO Q12H for 5 Days, #10 TAB Prov: ANNA ZUNIGA MD 04/04/25 Gabapentin (Neurontin) 300 Mg Capsule 1 CAP PO PRN, #30 CAP use 2 tablets by mouth 2 times a day for 3 days then 1 tablets three times a day for 3 days then 1 tablet two times a day for 3 days then one tablet a day for 3 days Prov: ANNA ZUNIGA MD 04/03/25 Signature Scribe Signature: no scribe Attestation: The note accurately reflects work and decisions made by me.Anna Zuniga MD 04/04/25 03:14 SEBASTIÁN OLMEDO NP Apr 03, 2025 15:52 [facility] BAN[facility] MD Apr 03, 2025 22:41
[2025-04-03 16:22] LABS: MEAN PLATELET VOLUME 8.9 FL (7.4-10.4); RED CELL DISTRIBUTION WIDTH 13.2 % (11.5-14.5)
[2025-04-03 16:45] LABS: CREATININE 0.75 MG/DL (0.40-0.90); ETHANOL 21 MG/DL (<10); TOTAL CARBON DIOXIDE 26.6 MMOL/L (24-32); eCRCL 105 ML/MIN; eGFR 86 ML/MIN
[2025-04-03] MEDS ORDERED: GABA300C PO (22:38)
[2025-04-03 23:18] LABS: LEUKOCYTE ESTERASE ,URINE NEGATIVE (Neg); NITRITES, URINE NEGATIVE (Neg); OCCULT BLOOD,URINE NEGATIVE (Neg); URINE AMPHETAMINE SCREEN NEGATIVE (Neg); URINE BARBITUATE SCREEN NEGATIVE (Neg); URINE BENZODIAZEPINES SCREEN POSITIVE (Neg); URINE CANNABINOID SCREEN POSITIVE (Neg); URINE COCAINE SCREEN NEGATIVE (Neg); URINE METHADONE SCREEN NEGATIVE (Neg); URINE OPIATE SCREEN NEGATIVE (Neg); URINE PHENCYCLIDINE SCREEN NEGATIVE (Neg)
[2025-04-03 23:57] LABS: UA COLLECTION TYPE CLN CATCH MIDSTREAM
[2025-04-03 23:59] LABS: SQUAMOUS EPITHELIAL CELL,UR NONE SEEN /LPF (FEW)
[2025-04-04 00:16] VITALS: BP 117/80; PULSE 75; RESP 20; TEMP 97.7; O2SAT 98
[2025-04-04] MEDS ORDERED: CEFP200T13 PO (00:24)
[2025-04-11] MEDS ORDERED: GABA600T PO (16:47)
[2025-04-11] MEDS ORDERED: PROM25TA14 PO (16:55)
== END 2025-04-04 00:31 | disposition home or self-care (01) ==
LOC: ER 15:17
DX: O99.311 Alcohol use complicating pregnancy, first trimester (principal); F20.9 Schizophrenia, unspecified; F41.9 Anxiety disorder, unspecified; F32.A Depression, unspecified; Z86.73 Personal history of transient ischemic attack (TIA), and cerebral infarction without residual deficits; Z87.440 Personal history of urinary (tract) infections; Z88.6 Allergy status to analgesic agent; Z88.8 Allergy status to other drugs, medicaments and biological substances; Z90.49 Acquired absence of other specified parts of digestive tract; Z79.899 Other long term (current) drug therapy; Y90.9 Presence of alcohol in blood, level not specified; Z3A.08 8 weeks gestation of pregnancy
CPT/HCPCS: 36415; 80048; 80305; 81001; 84702; 85025; 87491; 87591; 99285; G0480; 80320

== ENCOUNTER 2025-04-08 09:37 | Emergency (ER) | payer MEDICARE, MEDICAID ==
[~2025-04-08] VITALS: Ht 176.5 cm; Wt 98.6 kg
[~2025-04-08 09:37] MED LIST changes: +CEFP200T13 PO; +GABA300C PO
[2025-04-08 10:10] VITALS: TEMP 97.1
[2025-04-08 10:29] LABS: URINE HCG POSITIVE (NEG)
[2025-04-08 10:30] LABS: LEUKOCYTE ESTERASE ,URINE MODERATE (Neg); NITRITES, URINE NEGATIVE (Neg); OCCULT BLOOD,URINE NEGATIVE (Neg)
[2025-04-08 10:36] LABS: UA COLLECTION TYPE CLN CATCH MIDSTREAM
[2025-04-08 10:38] LABS: SQUAMOUS EPITHELIAL CELL,UR FEW /LPF (FEW)
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
[2025-04-08] MEDS ORDERED: AMOX-580 PO (12:04)
[2025-04-08 12:23] LABS: URINE AMPHETAMINE SCREEN NEGATIVE (Neg); URINE BARBITUATE SCREEN NEGATIVE (Neg); URINE BENZODIAZEPINES SCREEN POSITIVE (Neg); URINE CANNABINOID SCREEN POSITIVE (Neg); URINE COCAINE SCREEN NEGATIVE (Neg); URINE METHADONE SCREEN NEGATIVE (Neg); URINE OPIATE SCREEN NEGATIVE (Neg); URINE PHENCYCLIDINE SCREEN NEGATIVE (Neg)
[2025-04-08 12:24] VITALS: BP 134/78; PULSE 78; RESP 18; O2SAT 98
[2025-04-08] MEDS ORDERED: PROM25TA14 PO (12:26)
--- NOTE | 2025-04-08 17:12 | RADIOLOGY REPORT ---
OBSTETRIC ULTRASOUND PRIOR TO 14 WEEKS CLINICAL INDICATION: preg fall abd pain beta HCGs 9019 TECHNIQUE: Multiple grayscale ultrasound images were obtained of the pelvis via transabdominal and transvaginal approach for obstetric evaluation. Limited color Doppler and spectral Doppler acquisitions were also obtained. COMPARISON: None FINDINGS: Uterus: 8.4 by 4.4 x 5.7 cm. There is a single intrauterine gestational sac is visualized measuring 8 mm. A normal yolk sac is present. No pole is seen at this time. Right adnexa: right ovary 2.1 x 1.7 x 2.3 cm. Normal arterial blood flow in the ovary. No right adnexal mass seen. Left adnexa: left ovary 3.1 x 1.8 x 2.6 cm. Normal arterial blood flow in the ovary. No left adnexal mass seen. Other: None IMPRESSION: 1. Single intrauterine gestational sac measuring 8 mm and yolk sac. Findings may be due to early . Follow-up by trending beta HCGs and follow-up ultrasound in 7-14 days.
== END 2025-04-08 12:26 | disposition home or self-care (01) ==
LOC: ER 09:37
DX: O23.41 Unspecified infection of urinary tract in pregnancy, first trimester (principal); F41.9 Anxiety disorder, unspecified; F32.A Depression, unspecified; F20.9 Schizophrenia, unspecified; Z86.73 Personal history of transient ischemic attack (TIA), and cerebral infarction without residual deficits; Z87.440 Personal history of urinary (tract) infections; Z88.6 Allergy status to analgesic agent; Z88.8 Allergy status to other drugs, medicaments and biological substances; Z90.49 Acquired absence of other specified parts of digestive tract; Z3A.01 Less than 8 weeks gestation of pregnancy
CPT/HCPCS: 36415; 76801; 76817; 80305; 81001; 81025; 84702; 86885; 86900; 86901; 87088; 93976; 99284

== ENCOUNTER 2025-04-16 12:34 | Emergency (ER) | payer MEDICARE, MEDICAID ==
[~2025-04-16] VITALS: Ht 175.3 cm; Wt 98.2 kg
[~2025-04-16 12:34] MED LIST changes: +AMOX-580 PO; -CEFP200T13 PO; +GABA600T PO; +PROM25TA14 PO
[2025-04-16 12:39] VITALS: TEMP 97
[2025-04-16 12:59] LABS: MEAN PLATELET VOLUME 9.0 FL (7.4-10.4); RED CELL DISTRIBUTION WIDTH 12.9 % (11.5-14.5)
[2025-04-16 14:02] LABS: CREATININE 0.54 MG/DL (0.40-0.90); TOTAL CARBON DIOXIDE 23.6 MMOL/L (24-32); eCRCL 146 ML/MIN; eGFR > 90 ML/MIN
[2025-04-16 15:02] LABS: URINE HCG POSITIVE (NEG)
[2025-04-16 15:03] LABS: LEUKOCYTE ESTERASE ,URINE NEGATIVE (Neg); NITRITES, URINE NEGATIVE (Neg); OCCULT BLOOD,URINE NEGATIVE (Neg)
[2025-04-16 15:05] LABS: UA COLLECTION TYPE CLN CATCH MIDSTREAM
--- NOTE | 2025-04-16 15:13 | Physician Documentation ---
History of Present Illness ~ Chief Complaint: Complications Stated Complaint: PREG COMPLICATIONS Time Seen by MD: 18:46 Primary Medical Doctor: NONE HPI This is a 39-year-old female who presents with days of progressively worsening right flank pain radiating to her lower abdomen, patient reports chills without fever and foul-smelling urine. Patient reports history of kidney infections and kidney stones, patient reports that pain is consistent with previous kidney stone pain. Medication Reconciliation Allergies: Coded Allergies: acetaminophen (Verified Allergy, Severe, 04/16/25) ibuprofen (Verified Allergy, Severe, 04/16/25) naproxen (Verified Allergy, Severe, 04/16/25) ondansetron (Verified Allergy, Unknown, 04/16/25) Scheduled Albuterol Sulfate (Proventil Hfa), 2 PUFFS INH Q4H Amox Tr/Potassium Clavulanate 875/125 MG (Augmentin 875/125 MG), 1 TAB PO BID Amox Tr/Potassium Clavulanate 875/125 MG (Augmentin 875/125 MG), 1 TAB PO BID Gabapentin (Neurontin), 1 CAP PO PRN Gabapentin (Neurontin), 1 TAB PO Q8H Scheduled PRN Promethazine HCl (Promethazine HCl), 1 TAB PO Q6H PRN PRN for nausea/vomiting Discontinued Medications Cefpodoxime Proxetil (Vantin), 1 TAB PO Q12H Discontinued Reason: Auto Discontinued Promethazine HCl (Promethazine HCl), 1 TAB PO Q6H PRN PRN for nausea/vomiting Discontinued Reason: Prescription changed Past Medical History Past Medical History: CVA/TIA/Stroke, UTI, *PSYCH*, Anxiety, Depression, Panic Disorder, Schizophrenia Past Surgical History: appendectomy Alcohol Use: None Drug Use: none Lives In: Home Review of Systems ROS As stated above in the HPI, otherwise all systems are reviewed and negative. Physical Exam Physical Exam Vital Signs: Temperature: 97.0, Source: Temporal, Heart Rate: 83, Respiratory Rate: 18, BP: 142/85, Pulse Oximetry: 97, Weight: 98.200 Physical Exam VITALS: Reviewed and as above. GENERAL: Alert, nontoxic appearing, no apparent distress.: RESPIRATORY: No increased work of breathing, no respiratory distress, speaking in full clear sentences BACK: No CVA tenderness Progress Results/Orders Results/Orders Orders - ERIKA,MAURICE W ASSISTANT PROGRAM MANAGER Ultrasound Kidney Non Vasc (04/16/25 14:54) US OB (04/16/25 14:54) Completed Orders - MAURICE JAMES ASSISTANT PROGRAM MANAGER Hcg Serum Qt (04/16/25 14:40) Ultrasound Kidney Non Vasc (04/16/25 14:54) US OB (04/16/25 14:54) Vital Signs 04/16/25 04/16/25 12:39 19:16 Temp 97.0 Pulse 83 89 Resp 18 15 B/P (MAP) 142/85 141/99 (113) Pulse Ox 97 99 Laboratory Tests Test 04/16/25 12:49 White Blood Count 10.5 Red Blood Count 4.31 Hemoglobin 13.6 Hematocrit 39.4 Mean Corpuscular Volume 91.5 Mean Corpuscular Hemoglobin 31.5 H Mean Corpuscular Hemoglobin Concent 34.4 Red Cell Distribution Width 12.9 Platelet Count 400 Mean Platelet Volume 9.0 Neutrophils (%) (Auto) 64.4 Lymphocytes (%) (Auto) 25.0 Monocytes (%) (Auto) 6.9 Eosinophils (%) (Auto) 2.8 Basophils (%) (Auto) 0.9 Neutrophils # (Auto) 6.7 Lymphocytes # (Auto) 2.6 Monocytes # (Auto) 0.7 Eosinophils # (Auto) 0.3 Basophils # (Auto) 0.1 CBC Comment Urine Specimen Description Cln catch midstream Urine Color Straw Urine Clarity Clear Urine pH 6.5 Urine Specific Wall <=1.005 Urine Protein Negative Urine Glucose (UA) Negative Urine Ketones Negative Urine Occult Blood Negative Urine Nitrite Negative Urine Bilirubin Negative Urine Urobilinogen 0.2 Urine Leukocyte Esterase Negative Urine Culture Indicated Not ind Volume Urine Centrifuged 10 ml Urine HCG, Qualitative Positive Urine Comment Sodium Level 139 Potassium Level 3.8 Chloride Level 104 Carbon Dioxide Level 23.6 L Anion Gap 11 Blood Urea Nitrogen 4 L Creatinine 0.54 Estimated GFR/1.73 m2 > 90 BUN/Creatinine Ratio 7.4 L Glucose Level 90 Calcium Level 8.8 Total Bilirubin 0.2 Aspartate Amino Transf (AST/SGOT) 22 Alanine Aminotransferase (ALT/SGPT) 27 Alkaline Phosphatase 77 Total Protein 7.4 Albumin 3.6 Globulin 3.8 Albumin/Globulin Ratio 0.9 L HCG Beta Subunit [id number] Chemistry Comments EKG/XRAY/CT/US/VASC/MRI Ultrasound #1: Impression Exam: ULTRASOUND KIDNEY NON VASC INDICATION: Flank and Abd Pain TECHNIQUE: Multiple real-time sonographic images of the kidneys and bladder were obtained. COMPARISON: None FINDINGS: RIGHT kidney measures 10.7 cm in length. No hydronephrosis. LEFT kidney measures 11.5 cm in length. No hydronephrosis. No large intraluminal masses are seen in the bladder. IMPRESSION: 1. Unremarkable examination. Electronically Signed by:RICK CUNNINGHAM MD Date & Time: 04/16/251628 Dictated by: RICK CUNNINGHAM MD Dictation date and time: 04/16/251628 Ultrasound #2: Impression Exam: US OB OB ULTRASOUND <14 WEEKS: HISTORY: Flank and Abd Pain TECHNIQUE: Multiple real-time grayscale sonographic images of the pelvis with duplex Doppler color flow, spectral and M-mode analysis. TRANSDUCERS: Transabdominal and transvaginal COMPARISON: US US OB on DOS: 04/08/25 FINDINGS: The uterus measures 9.7 x 4.9 x 7.0 cm The cervix is not visualized Right ovary measures 2.7 x 2.4 x 2.4 cm with normal Doppler color flow. Left ovary measures 2.6 x 1.7 x 2.5 cm with normal Doppler color flow. IUP single fetus at 6 weeks and 3 days average ultrasound age based on mean crown-rump length of 0.61 cm and gestational sac size of 1.82 cm heart rate detected at 129 beats per minute. Yolk sac is present. Amniotic fluid subjectively within normal limits Mila-gestational space: Small subchorionic hematoma is present. IMPRESSION: IUP single live fetus 6 weeks and 3 days AUA corresponding to an CELI of 12/07/2025. Small subchorionic hematoma is present. Close clinical and sonographic follow-up advised. Electronically Signed by:RICK CUNNINGHAM MD Date & Time: 04/16/251626 Dictated by: RICK CUNNINGHAM MD Dictation date and time: 04/16/251626 Medical Decision Making Additional information obtaine: N/A Findings MSE performed in triage and patient returned to ED lobby by nursing staff to await available ED room This 39-year-old female presents to the emergency department with concern for right flank pain radiating to her lower abdomen, patient was well- appearing with a benign physical exam, labs obtained did not demonstrate evidence of acute infection, ultrasound of kidney did not demonstrate hydronephrosis an OB ultrasound was normal demonstrating a six week three day viable intrauterine . Given patient's report that pain is consistent with previous kidney stone pain I suspect this is the most likely cause of patient's pain. In shared decision-making patient will be discharged home for home care and careful waiting, I discussed return to care precautions, follow up instructions, and follow up instructions with the patient who verbalized understanding. Patient additionally requested refill of previously prescribed medications until she can see primary care and OBGYN in the next few weeks, I will refill medications. Patient is appropriate for discharge patient follow up. Differential Dx:Considerations: Include: -complete, - incomplete, -inevitable, -missed, -threatened, Abruptio placentae, Active labor-term, Active labor-, Appendicitis, [place] contraction, Cystitis: Acute, Discomfort of , Ectopic , Ectopic preg.-ruptured, Placenta previa, Pyelonephritis: Acute, Ruture of membranes, UTI Departure Time of Disposition: 19:17 Disposition: 01 HOME / SELF CARE / HOMELESS Impression: Primary Impression: Flank pain Qualified Codes: R10.A1 - Flank pain, right side Condition: Improved Discharge Instructions: Kidney Stones, [id number] Additional Instructions: Given your history of kidney stones and report of similar pain with previous kidney stones, this is most likely the cause of your pain though all possibilities have not been completely eliminated. Your lab work and ultr asounds were reassuring. Please take your medications as previously prescribed. Please follow up with your primary care provider in the next few days. Please return to the emergency department for any new or worsening concerning symptoms. Referrals: NO PRIMARY CARE PROVIDER (PCP) Prescriptions Promethazine HCl (Promethazine HCl) 25 Mg Tablet 1 TAB PO Q6H PRN PRN for nausea/vomiting, #12 TAB Prov: MAURICE JAMES 04/16/25 Gabapentin (Neurontin) 600 Mg Tablet 1 TAB PO Q8H for 7 Days, #21 TAB 0 Refills Prov: MAURICE JAMES 04/16/25 Education Educated: Patient Educated regarding: diagnosis, treatment, prognosis, need for follow up Signature Scribe Signature: No scribe Attestation: The note accurately reflects work and decisions made by me.RENEE Montero 04/17/25 01:13 MAURICE JAMES Apr 16, 2025 15:13
--- NOTE | 2025-04-16 16:29 | RADIOLOGY REPORT ---
OB ULTRASOUND <14 WEEKS: HISTORY: Flank and Abd Pain TECHNIQUE: Multiple real-time grayscale sonographic images of the pelvis with duplex Doppler color flow, spectral and M-mode analysis. TRANSDUCERS: Transabdominal and transvaginal COMPARISON: US US OB on DOS: 04/08/25 FINDINGS: The uterus measures 9.7 x 4.9 x 7.0 cm The cervix is not visualized Right ovary measures 2.7 x 2.4 x 2.4 cm with normal Doppler color flow. Left ovary measures 2.6 x 1.7 x 2.5 cm with normal Doppler color flow. IUP single fetus at 6 weeks and 3 days average ultrasound age based on mean crown-rump length of 0.61 cm and gestational sac size of 1.82 cm heart rate detected at 129 beats per minute. Yolk sac is present. Amniotic fluid subjectively within normal limits Mila-gestational space: Small subchorionic hematoma is present. IMPRESSION: IUP single live fetus 6 weeks and 3 days AUA corresponding to an CELI of 12/07/2025. Small subchorionic hematoma is present. Close clinical and sonographic follow-up advised.
--- NOTE | 2025-04-16 16:32 | RADIOLOGY REPORT ---
INDICATION: Flank and Abd Pain TECHNIQUE: Multiple real-time sonographic images of the kidneys and bladder were obtained. COMPARISON: None FINDINGS: RIGHT kidney measures 10.7 cm in length. No hydronephrosis. LEFT kidney measures 11.5 cm in length. No hydronephrosis. No large intraluminal masses are seen in the bladder. IMPRESSION: 1. Unremarkable examination.
[2025-04-16 19:16] VITALS: BP 141/99; PULSE 89; RESP 15; O2SAT 99
[2025-04-16] MEDS ORDERED: GABA600T PO (19:20)
[2025-04-16] MEDS ORDERED: PROM25TA14 PO (19:20)
== END 2025-04-16 20:07 | disposition home or self-care (01) ==
LOC: ER 12:35
DX: O26.891 Other specified pregnancy related conditions, first trimester (principal); F20.9 Schizophrenia, unspecified; F41.9 Anxiety disorder, unspecified; F32.A Depression, unspecified; Z86.73 Personal history of transient ischemic attack (TIA), and cerebral infarction without residual deficits; Z88.6 Allergy status to analgesic agent; Z88.8 Allergy status to other drugs, medicaments and biological substances; Z90.49 Acquired absence of other specified parts of digestive tract; Z3A.01 Less than 8 weeks gestation of pregnancy
CPT/HCPCS: 36415; 76770; 76801; 76817; 80053; 81003; 81025; 84702; 85025; 93976; 99284; A6407; Z7610

== ENCOUNTER 2025-04-20 17:01 | Emergency (ER) | payer MEDICARE, MEDICAID ==
[~2025-04-20] VITALS: Ht 175.3 cm; Wt 96.0 kg
[2025-04-20 18:02] LABS: MEAN PLATELET VOLUME 9.6 FL (7.4-10.4); RED CELL DISTRIBUTION WIDTH 12.8 % (11.5-14.5)
--- NOTE | 2025-04-20 18:12 | Physician Documentation ---
History of Present Illness Chief Complaint: Abdominal Pain w/vomiting Stated Complaint: VOMITING/ Time Seen by MD: 18:09 Primary Medical Doctor: NONE HPI 39-year-old female who is 7 weeks , presenting with multiple complaints She tells me that she is 7 weeks . She has had an ultrasound recently. She tells me that she ate a salad, on Halloween, and then developed nausea vomiting and diarrhea. She also reports pain that she states starts in her neck, goes down her entire right side down to her abdomen. She tells me she is mostly just concerned about . She also says she was recently diagnosed with a kidney stone. She also says that she was recently given antibiotics for possible urinary tract infection and has been taking them. She denies any abdominal cramping. No vaginal bleeding or discharge. No dysuria. Medication Reconciliation Allergies: Coded Allergies: acetaminophen (Verified Allergy, Severe, 04/20/25) ibuprofen (Verified Allergy, Severe, 04/20/25) naproxen (Verified Allergy, Severe, 04/20/25) ondansetron (Verified Allergy, Unknown, 04/20/25) Scheduled Albuterol Sulfate (Proventil Hfa), 2 PUFFS INH Q4H Amox Tr/Potassium Clavulanate 875/125 MG (Augmentin 875/125 MG), 1 TAB PO BID Amox Tr/Potassium Clavulanate 875/125 MG (Augmentin 875/125 MG), 1 TAB PO BID Gabapentin (Neurontin), 1 CAP PO PRN Gabapentin (Neurontin), 1 TAB PO Q8H Gabapentin (Gabapentin), 1 TAB PO Q8H Scheduled PRN Promethazine HCl (Promethazine HCl), 1 TAB PO Q6H PRN PRN for nausea/vomiting Promethazine HCl (Promethazine HCl), 1 TAB PO Q6H PRN PRN for nausea/vomiting Past Medical History Past Medical History: CVA/TIA/Stroke, UTI, *PSYCH*, Anxiety, Depression, Panic Disorder, Schizophrenia Past Surgical History: appendectomy Alcohol Use: None Drug Use: none Lives In: Home Review of Systems Constitutional: Denies: fever Gastrointestinal: Reports: abdominal pain, nausea, vomiting, diarrhea Physical Exam Vital Signs: Temperature: 97.1, Source: Temporal, Heart Rate: 88, Respiratory Rate: 16, BP: 144/88, Pulse Oximetry: 99, Weight: 96.000 Oxygen Flow Rate: 0 Physical Exam General: This is a very anxious and talkative young woman, appears well dressed and not in distress HEENT: Atraumatic, oropharynx is moist Heart: Regular rate and rhythm, normal-appearing peripheral perfusion Lungs: normal work of breathing, normal oxygen saturation on room air Abdomen: Soft, nondistended, mild discomfort on palpation in all quadrants, the patient has a significant pain reaction even when I lightly touch the skin on her abdomen Neuro: Alert and oriented Psychiatric: Appears extremely anxious, has slightly pressured speech, but is cooperative Progress Results/Orders Results/Orders Vital Signs 04/20/25 17:19 Temp 97.1 Pulse 88 Resp 16 B/P (MAP) 144/88 Pulse Ox 99 O2 Flow Rate 0 Laboratory Tests Test 04/20/25 17:55 White Blood Count 12.2 H Red Blood Count 4.42 Hemoglobin 13.5 Hematocrit 40.1 Mean Corpuscular Volume 90.8 Mean Corpuscular Hemoglobin 30.5 Mean Corpuscular Hemoglobin Concent 33.6 Red Cell Distribution Width 12.8 Platelet Count 404 Mean Platelet Volume 9.6 Neutrophils (%) (Auto) 65.2 Lymphocytes (%) (Auto) 24.7 Monocytes (%) (Auto) 7.0 Eosinophils (%) (Auto) 2.5 Basophils (%) (Auto) 0.6 Neutrophils # (Auto) 7.9 H Lymphocytes # (Auto) 3.0 Monocytes # (Auto) 0.9 Eosinophils # (Auto) 0.3 Basophils # (Auto) 0.1 CBC Comment Chemistry Comments EKG/XRAY/CT/US/VASC/MRI Ultrasound : Impression Ultrasound shows a 7 week , no new complication or changes compared to previous ultrasound Medical Decision Making Additional information obtaine: old records Findings Reviewed recent ER visits including laboratory testing and treatments Differential Dx:Considerations: -Threatened, Abruptio placentae, Appendicitis, Bowel obstruction, Cholelithasis, Constipation, Urinary tract infection, Urolithiasis Additional Comments The patient presents with multiple complaints in the setting of early . She appears quite anxious, particularly about the itself. On chart review she has had a recent OB ultrasound that was reassuring. She does not appear clinically dehydrated. Labs were obtained that show no acute kidney injury, electrolyte derangement, or other acute abnormality. Urinalysis is normal. Ultrasound shows no dangerous changes with the . She was reassured, after which she stated she felt well again, and wanted to go home. No dangerous cause identified for her symptoms. At least part of her presentation seems likely related to anxiety. Return precautions given. Departure Time of Disposition: 20:02 Disposition: HOME / SELF CARE / HOMELESS Impression: Primary Impression: Abdominal pain affecting Condition: Stable Discharge Instructions: Abdominal Pain During Referrals: NO PRIMARY CARE PROVIDER (PCP) Prescriptions Promethazine HCl (Promethazine HCl) 25 Mg Tablet 1 TAB PO Q6H PRN PRN for nausea/vomiting for 14 Days, #56 TAB Prov: NICHOLE MARTINEZ MD 04/20/25 Gabapentin (Gabapentin) 600 Mg Tablet 1 TAB PO Q8H for 30 Days, #90 TAB 1 Refill Prov: NICHOLE MARTINEZ MD 04/20/25 Education Educated: Patient Educated regarding: diagnosis, treatment, need for follow up Signature Scribe Signature: carmen Attestation: NICHOLE Rojas MD Apr 20, 2025 18:12
[2025-04-20 18:14] LABS: CREATININE 0.82 MG/DL (0.40-0.90); TOTAL CARBON DIOXIDE 24.4 MMOL/L (24-32); eCRCL 96 ML/MIN; eGFR 78 ML/MIN
[2025-04-20 18:29] LABS: LEUKOCYTE ESTERASE ,URINE NEGATIVE (Neg); NITRITES, URINE NEGATIVE (Neg); OCCULT BLOOD,URINE NEGATIVE (Neg); URINE HCG POSITIVE (NEG)
[2025-04-20 18:37] LABS: UA COLLECTION TYPE CLN CATCH MIDSTREAM
[2025-04-20] MEDS ORDERED: PROM25TA14 PO (20:06)
[2025-04-20] MEDS ORDERED: GABA-1405 PO (20:06)
[2025-04-20 20:19] VITALS: BP 126/66; PULSE 94; RESP 26; TEMP 97.1; O2SAT 97
--- NOTE | 2025-04-20 20:20 | RADIOLOGY REPORT ---
EXAM: US US OB HISTORY: 7 weeks preg, abd pain TECHNIQUE: Multiple real-time grayscale images of the gravid uterus with duplex Doppler color flow and M-mode spectral analysis. FINDINGS: There is a single intrauterine gestational sac containing a yolk sac and pole. The crown rump length measures 9.3 mm corresponding to an estimated gestational age of 7 weeks 0 days. CELI: 12/07/24. cardiac activity was identified with heart rate of 147 bpm. Both ovaries are identified and appear unremarkable. No evidence of pelvic mass or fluid collection. IMPRESSION: Single live intrauterine with estimated gestational age of 7 weeks 0 days.
== END 2025-04-20 20:29 | disposition home or self-care (01) ==
LOC: ER 17:02
DX: O99.891 Other specified diseases and conditions complicating pregnancy (principal); F41.9 Anxiety disorder, unspecified; F32.A Depression, unspecified; F20.9 Schizophrenia, unspecified; Z86.73 Personal history of transient ischemic attack (TIA), and cerebral infarction without residual deficits; Z87.440 Personal history of urinary (tract) infections; Z88.6 Allergy status to analgesic agent; Z88.8 Allergy status to other drugs, medicaments and biological substances; Z90.49 Acquired absence of other specified parts of digestive tract; Z79.899 Other long term (current) drug therapy; Z3A.01 Less than 8 weeks gestation of pregnancy
CPT/HCPCS: 36415; 76801; 76802; 80053; 81003; 81025; 83690; 85025; 93976; 99284

== ENCOUNTER 2025-04-23 13:18 | Emergency (ER) | payer MEDICARE, MEDICAID ==
[~2025-04-23] VITALS: Ht 170.2 cm; Wt 97.0 kg
[~2025-04-23 13:18] MED LIST changes: +GABA-1405 PO
[2025-04-23 13:44] LABS: LEUKOCYTE ESTERASE ,URINE TRACE (Neg); NITRITES, URINE NEGATIVE (Neg); OCCULT BLOOD,URINE NEGATIVE (Neg); URINE HCG POSITIVE (NEG)
[2025-04-23 13:47] LABS: UA COLLECTION TYPE CLN CATCH MIDSTREAM
[2025-04-23 13:49] LABS: MEAN PLATELET VOLUME 9.2 FL (7.4-10.4); RED CELL DISTRIBUTION WIDTH 12.7 % (11.5-14.5)
[2025-04-23 13:50] LABS: MUCUS STRANDS NONE SEEN /LPF (Neg); SQUAMOUS EPITHELIAL CELL,UR MODERATE /LPF (FEW)
--- NOTE | 2025-04-23 14:01 | Physician Documentation ---
History of Present Illness ~ General Chief Complaint: Multiple Medical Complaints Stated Complaint: COMPLICATIONS Time Seen by MD: 14:34 Primary Medical Doctor: NONE History of Present Illness Initial Comments MSE: Patient is a 39-year-old female that presents to the emergency department for evaluation of chest pain flank pain back pain. Patient reports that she is 8 weeks . Patient was seen here last week for similar symptoms workup was negative at that time. No indication of dangerous etiology at this time. Medication Reconciliation Allergies: Coded Allergies: acetaminophen (Verified Allergy, Severe, 04/20/25) ibuprofen (Verified Allergy, Severe, 04/20/25) naproxen (Verified Allergy, Severe, 04/20/25) ondansetron (Verified Allergy, Unknown, 04/20/25) Scheduled Albuterol Sulfate (Proventil Hfa), 2 PUFFS INH Q4H Amox Tr/Potassium Clavulanate 875/125 MG (Augmentin 875/125 MG), 1 TAB PO BID Amox Tr/Potassium Clavulanate 875/125 MG (Augmentin 875/125 MG), 1 TAB PO BID Gabapentin (Neurontin), 1 CAP PO PRN Gabapentin (Neurontin), 1 TAB PO Q8H Gabapentin (Gabapentin), 1 TAB PO Q8H Scheduled PRN Promethazine HCl (Promethazine HCl), 1 TAB PO Q6H PRN PRN for nausea/vomiting Promethazine HCl (Promethazine HCl), 1 TAB PO Q6H PRN PRN for nausea/vomiting Past Medical History Past Medical History: CVA/TIA/Stroke, UTI, *PSYCH*, Anxiety, Depression, Panic Disorder, Schizophrenia Past Surgical History: appendectomy Alcohol Use: None Drug Use: none Lives In: Home Review of Systems ROS As stated above in the HPI, otherwise all systems are reviewed and negative. Physical Exam Physical Exam Vital Signs: Temperature: 98.0, Source: Temporal, Heart Rate: 70, Respiratory Rate: 16, BP: 140/90, Pulse Oximetry: 98, Weight: 97.000 Oxygen Flow Rate: 0 Physical Exam VITALS: Reviewed and as above. GENERAL: Alert, no apparent distress. HEENT: Normocephalic, atraumatic, PERRL, EOMI, dry mucosa, no erythema RESPIRATORY: Lungs clear, normal breath sounds, no respiratory distress. CHEST: No accessory muscle use, no retractions CV: Regular rate, rhythm, no edema, no murmur, No: JVD GI: Soft, non-tender, bowels sounds present, no rebound, guarding, or rigidity BACK: No CVA tenderness, or swelling MUSCULOSKELETAL No deformities, no edema SKIN: Warm and dry, no rash NEURO: Oriented x4, No motor or sensory deficit PSYCH: Normal mood and affect, no agitation Progress Results/Orders Results/Orders Vital Signs 04/23/25 04/23/25 13:22 15:17 Temp 98.0 98.0 Pulse 70 79 Resp 16 16 B/P (MAP) 140/90 130/91 (104) Pulse Ox 98 95 O2 Flow Rate 0 0 Laboratory Tests Test 04/23/25 12:27 04/23/25 13:37 Urine Specimen Description Cln catch midstream Urine Color Yellow Urine Clarity Slightly cloudy Urine pH 6.0 Urine Specific [place] 1.010 Urine Protein Negative Urine Glucose (UA) Negative Urine Ketones Negative Urine Occult Blood Negative Urine Nitrite Negative Urine Bilirubin Negative Urine Urobilinogen 0.2 Urine Leukocyte Esterase Trace H Urine RBC None seen Urine WBC 0-4 Urine Squamous Epithelial Cells Moderate Urine Bacteria Few Urine Mucus None seen Urine Culture Indicated Indicated Volume Urine Centrifuged 10 ml Urine HCG, Qualitative Positive Urine Comment White Blood Count 12.4 H Red Blood Count 4.35 Hemoglobin 13.4 Hematocrit 39.8 Mean Corpuscular Volume 91.5 Mean Corpuscular Hemoglobin 30.9 Mean Corpuscular Hemoglobin Concent 33.8 Red Cell Distribution Width 12.7 Platelet Count 375 Mean Platelet Volume 9.2 Neutrophils (%) (Auto) 69.9 Lymphocytes (%) (Auto) 19.8 L Monocytes (%) (Auto) 7.2 Eosinophils (%) (Auto) 2.4 Basophils (%) (Auto) 0.7 Neutrophils # (Auto) 8.7 H Lymphocytes # (Auto) 2.4 Monocytes # (Auto) 0.9 Eosinophils # (Auto) 0.3 Basophils # (Auto) 0.1 CBC Comment Sodium Level 136 Potassium Level 3.8 Chloride Level 103 Carbon Dioxide Level 23.9 L Anion Gap 9 Blood Urea Nitrogen 7 Creatinine 0.56 Estimated GFR/1.73 m2 > 90 BUN/Creatinine Ratio 12.5 Glucose Level 89 Calcium Level 9.0 Total Bilirubin 0.2 Aspartate Amino Transf (AST/SGOT) 18 Alanine Aminotransferase (ALT/SGPT) 24 Alkaline Phosphatase 76 Total Protein 8.0 Albumin 3.8 Globulin 4.2 Albumin/Globulin Ratio 0.9 L Lipase 30 HCG Beta Subunit [id number] Chemistry Comments Microbiology Date/Time Source Procedure Growth Status 04/23/25 13:50 Urine Clean Catch Midstream Urine Culture - Preliminary Culture received. Resulted Medical Decision Making Additional information obtaine: other Findings 38-year-old GP female presented for evaluation of ongoing . She was seen in the ED last week; at that time, quantitative hCG was >45,000 mIU/mL and transvaginal ultrasound demonstrated findings consistent with a normal intrauterine . Today, hCG is >75,000 mIU/mL, consistent with expected progression for a viable gestation. She denies abdominal pain, cramping, vaginal bleeding, or other concerning symptoms. No evidence of acute complications. No repeat ultrasound indicated at this time given prior appropriate imaging and absence of new symptoms. The discriminatory hCG threshold for visualization of intrauterine is typically 1, 5003,000 mIU/mL; above this, absence of an intrauterine gestational sac would raise concern for abnormal gestation, but this patient has already had a documented intrauterine .Serial hCG rise is appropriate and reassuring. Patient was counseled regarding the importance of outpatient follow-up with her primary care provider and to establish care with an [facility] representative for routine care. She was advised to return to the ED for evaluation if she develops abdominal pain, vaginal bleeding, or other concerning symptoms. Discharge instructions reviewed and patient verbalized understanding. No acute interventions required. Stable for discharge. Differential Diagnosis Patient presents for evaluation of the status of her . Patient wants to ensure that there were no complications with the at this time. Departure Disposition: HOME / SELF CARE / HOMELESS Impression: Primary Impression: General medical examination Additional Impression: First trimester Condition: Stable Additional Instructions: Thank you for coming to the emergency department for your evaluation. Your is progressing as expected, and your recent ultrasound and lab results are reassuring. You do not have any symptoms that are concerning at this time. What to do next: Please schedule a follow-up appointment with your primary care provider and establish care with an [facility] representative (OBGYN) for ongoing care. Regular visits are important to monitor your health and your babys development. At each visit, your provider will check your blood pressure, weight, and the growth of your . They will also listen for your babys heartbeat when appropriate. When to seek emergency care: Return to the emergency department right away if you experience any of the following: Vaginal bleeding Abdominal pain or cramping Shortness of breath Dizziness or fainting Severe nausea or vomiting Any other new or concerning symptoms These symptoms can be signs of complications that need urgent evaluation. General advice: Take vitamins as recommended. Avoid alcohol, tobacco, and illicit drugs. If you have questions about medications, supplements, or your health, ask your healthcare provider. If you have not already done so, discuss any chronic health conditions or medications with your provider to make sure they are safe during . If you have any questions or concerns before your next appointment, contact your healthcare provider. Wishing you a healthy ! Referrals: NO PRIMARY CARE PROVIDER (PCP) Education Educated: Patient Educated regarding: diagnosis, treatment, need for follow up Signature Scribe Signature: A Attestation: Scribed for Andrea Hodgson by RENEE Marie . 04/23/25 16:34 ANDREA HODGSON Apr 23, 2025 14:01
[2025-04-23 14:02] LABS: eGFR > 90 ML/MIN
[2025-04-23 14:30] LABS: CREATININE 0.56 MG/DL (0.40-0.90); TOTAL CARBON DIOXIDE 23.9 MMOL/L (24-32); eCRCL 131 ML/MIN
[2025-04-23 15:17] VITALS: BP 130/91; PULSE 79; RESP 16; TEMP 98; O2SAT 95
== END 2025-04-23 16:35 | disposition home or self-care (01) ==
LOC: ER 13:19
DX: O26.891 Other specified pregnancy related conditions, first trimester (principal); F20.9 Schizophrenia, unspecified; F41.9 Anxiety disorder, unspecified; F32.A Depression, unspecified; Z86.73 Personal history of transient ischemic attack (TIA), and cerebral infarction without residual deficits; Z88.8 Allergy status to other drugs, medicaments and biological substances; Z90.49 Acquired absence of other specified parts of digestive tract; Z87.440 Personal history of urinary (tract) infections; Z79.899 Other long term (current) drug therapy; Z3A.08 8 weeks gestation of pregnancy
CPT/HCPCS: 36415; 80053; 81001; 81025; 83690; 84702; 85025; 87088; 99283